=== PATIENT | male | born 1995 | race Caucasian/White ===

== ENCOUNTER 2017-05-12 20:05 | Inpatient (IN) | payer OTHER ==
--- NOTE | 2017-05-12 21:15 | ED ---
General Adult HPI - General Chief complaint: Skin/Abscess/Foreign Body Stated complaint: Abscess Time Seen by Provider: 05/12/17 21:02 Source: patient, RN notes reviewed Mode of arrival: ambulatory Limitations: no limitations - History of Present Illness Initial comments: 21-year-old male with history of IV drug use presents for evaluation of left wrist pain and swelling. Patient noted approximately to 3 days ago that he was developing some erythema and warmth over the left wrist. This progressed into a nodular mass. He does admit to injecting IV drugs in this area. Denies any concern for foreign body. Patient has been taking Bactrim for the past 2 days and his symptoms have worsened. Denies fever. Denies any other complaints. - Related Data Home Medications Medication Instructions Recorded Confirmed No Known Home Medications [No 05/12/17 05/12/17 Known Home Medications] Allergies Allergy/AdvReac Type Severity Reaction Status Date / Time No Known Allergies Allergy Verified 05/12/17 21:01 Review of Systems ROS Statement: Those systems with pertinent positive or pertinent negative responses have been documented in the HPI. ROS Other: All systems not noted in ROS Statement are negative. Past Medical History Past Medical History: No Reported History History of Any Multi-Drug Resistant Organisms: None Reported Past Surgical History: No Surgical Hx Reported Past Psychological History: No Psychological Hx Reported Smoking Status: Current every day smoker Past Alcohol Use History: None Reported Past Drug Use History: None Reported General Exam Limitations: no limitations General appearance: alert, in no apparent distress Head exam: Present: atraumatic, normocephalic Eye exam: Present: normal appearance, PERRL ENT exam: Present: normal exam Neck exam: Present: normal inspection. Absent: tenderness Respiratory exam: Present: normal lung sounds bilaterally. Absent: respiratory distress Cardiovascular Exam: Present: regular rate, normal rhythm GI/Abdominal exam: Present: soft. Absent: distended, tenderness Extremities exam: Present: other (Left wrist: There is 3 cm round fluctuant mass with surrounding induration and erythema on the ulnar side of the dorsal wrist, cellulitis progressing from the midforearm to the MCP joint. Soft tissue swelling throughout, decreased range of motion at the wrist.) Course Vital Signs 05/12/17 05/12/17 20:41 22:16 Temperature 98.3 F 98.8 F Pulse Rate 74 74 Respiratory 18 18 Rate Blood Pressure 128/60 161/88 O2 Sat by Pulse 100 100 Oximetry Procedures - Incision & Drainage Consent Obtained: verbal consent Time Out Performed?: Yes Site: hand I&D Cleaning Method: Betadine Sterile Field Used?: Yes Scalpel Used: #11 I&D Drainage Obtained: Pus, Blood Packing: Iodoform Culture Obtained?: Yes Complications: pain Patient Tolerated Procedure: well Medical Decision Making - Medical Decision Making 21-year-old male presenting with left wrist abscess and cellulitis. Abscesses drained in the emergency department, approximately 20 mL of pus is obtained. Culture on drain material and blood cultures are obtained. Patient was previously on Bactrim. Laboratory studies reveal elevated white blood cell count and elevated CRP. There is extensive cellulitis of the dorsal surface of the hand and distal forearm. Patient will be admitted for IV antibiotics, failed outpatient antibiotic treatment. I have a low suspicion for involvement of the wrist. This appears to be superficial to the wrist. If symptoms do not improve after drainage and IV antibiotics, hand surgery consultation may be required. X-ray obtained, shows no gas formation or bony abnormality. Left wrist abscess and cellulitis, failed outpatient treatment - Lab Data Result diagrams: 05/12/17 22:15 05/12/17 22:15 Lab Results 05/12/17 05/12/17 Range/Units 22:15 22:15 WBC 12.9 H (3.8-10.6) k/uL RBC 4.40 (4.30-5.90) m/uL Hgb 12.7 L (13.0-17.5) gm/dL Hct 38.1 L (39.0-53.0) % MCV 86.7 (80.0-100.0) fL MCH 28.9 (25.0-35.0) pg MCHC 33.3 (31.0-37.0) g/dL RDW 13.4 (11.5-15.5) % Plt Count 311 (150-450) k/uL Neutrophils % 70 % Lymphocytes % 20 % Monocytes % 5 % Eosinophils % 4 % Basophils % 0 % Neutrophils # 9.0 H (1.3-7.7) k/uL Lymphocytes # 2.6 (1.0-4.8) k/uL Monocytes # 0.6 (0-1.0) k/uL Eosinophils # 0.5 (0-0.7) k/uL Basophils # 0.1 (0-0.2) k/uL Sodium 140 (137-145) mmol/L Potassium 4.8 (3.5-5.1) mmol/L Chloride 108 H (98-107) mmol/L Carbon Dioxide 24 (22-30) mmol/L Anion Gap 8 mmol/L BUN 14 (9-20) mg/dL Creatinine 1.20 (0.66-1.25) mg/dL Est GFR (MDRD) Af Amer >60 (>60 ml/min/1.73 sqM) Est GFR (MDRD) Non-Af >60 (>60 ml/min/1.73 sqM) Glucose 95 (74-99) mg/dL Calcium 9.4 (8.4-10.2) mg/dL Total Bilirubin 0.5 (0.2-1.3) mg/dL AST 25 (17-59) U/L ALT 24 (21-72) U/L Alkaline Phosphatase 70 (38-126) U/L C-Reactive Protein 37.2 H (<10.0) mg/L Total Protein 7.5 (6.3-8.2) g/dL Albumin 4.1 (3.5-5.0) g/dL Disposition Clinical Impression: Cellulitis of wrist, Abscess Disposition: ADMITTED IP TO THIS [facility] Condition: Stable Referrals: Nonstaff,Physician [Primary Care Provider] - 1-2 days Decision to Admit Reason: Admit from EC Decision Date: 05/12/17 Decision Time: 23:01
[2017-05-12] MEDS ORDERED: KETOROLAC 30 MG/ML 1 ML VIAL IVP STA (21:25)
--- NOTE | 2017-05-12 22:08 | XR ---
EXAMINATION TYPE: XR wrist complete LT DATE OF EXAM: 05/12/2017 COMPARISON: NONE HISTORY: Pain, abscess TECHNIQUE: 3 views left wrist supplemented with a navicular view FINDINGS: There is very prominent soft tissue swelling over the dorsum of the wrist and hand which ca n be related to the patient's reported abscess. The osseous structures appear intact. No cortical ero sions are identified. IMPRESSION: 1. No acute osseous abnormality. 2. Prominent soft tissue swelling dorsum of the hand and wrist can be related to the patient's report ed abscess.
[2017-05-12 22:26] LABS: Basophils # (A) 0.1 k/uL (0-0.2); Basophils % (A) 0 %; CH 28.9; CHCM 33.5; Eosinophils # (A) 0.5 k/uL (0-0.7); Eosinophils % (A) 4 %; HCT 38.1 % (39.0-53.0); HDW 2.54; HGB 12.7 gm/dL (13.0-17.5); Luc % (Auto) 2; Lymphocytes # (A) 2.6 k/uL (1.0-4.8); Lymphocytes % (A) 20 %; MCH 28.9 pg (25.0-35.0); MCHC 33.3 g/dL (31.0-37.0); MCV 86.7 fL (80.0-100.0); Mean Platelet Volume 6.5; Monocytes # (A) 0.6 k/uL (0-1.0); Monocytes % (A) 5 %; Neutrophils % (A) 70 %; RDW 13.4 % (11.5-15.5); WBC 12.9 k/uL (3.8-10.6); WBC (Perox) 13.09
[2017-05-12 22:43] LABS: Anion Gap 8 mmol/L; C Reactive Protein 37.2 mg/L (<10.0); Calcium 9.4 mg/dL (8.4-10.2); Carbon Dioxide 24 mmol/L (22-30); Chloride 108 mmol/L (98-107); Glucose 95 mg/dL (74-99); Non-African American GFR(MDRD) >60 (>60 ml/min/1.73 sqM); Sodium 140 mmol/L (137-145); Total Bilirubin 0.5 mg/dL (0.2-1.3)
[2017-05-12 22:44] LABS: Blood Urea Nitrogen 14 mg/dL (9-20); Potassium 4.8 mmol/L (3.5-5.1); Total Protein 7.5 g/dL (6.3-8.2)
[2017-05-12 22:45] LABS: ALT 24 U/L (21-72); AST 25 U/L (17-59); Alkaline Phosphatase 70 U/L (38-126)
[2017-05-12] MEDS ORDERED: cefTRIAXone IN SWFI 1,000 MG/10 ML SYRINGE IVP STA (22:58)
[2017-05-12] MEDS ORDERED: VANCOMYCIN IV PER PHARMACY 1 EACH MISC MISCELLANE PRN (22:58)
[2017-05-12] MEDS ORDERED: cefTRIAXone IN SWFI 1,000 MG/10 ML SYRINGE IVP SCH (23:00)
[2017-05-12] MEDS ORDERED: NALOXONE 0.4 MG/ML 1 ML VIAL IV PRN (23:01)
[2017-05-12] MEDS ORDERED: ONDANSETRON 4 MG/2 ML VIAL IVP PRN (23:01)
[2017-05-12] MEDS: SODIUM CHLORIDE 0.9% 1,000 ML IV SCH (23:58)
[2017-05-12] MEDS: NICOTINE 14MG/24HR PATCH TRANSDERM SCH (23:58)
[2017-05-13] MEDS: VANCOMYCIN 1,500 MG in SODIUM CHLORIDE 0.9% 250 ML IVPB SCH ×3 (00:05→19:54)
[2017-05-13 00:30] VITALS: BMI 25.1
[2017-05-13] MEDS: ACETAMINOPHEN TAB 325 MG TAB PO PRN ×2 (00:38→17:50)
[2017-05-13] MEDS: KETOROLAC 30 MG/ML 1 ML VIAL IVP PRN ×3 (04:47→19:47)
[2017-05-13 06:56] LABS: Basophils # (A) 0.1 k/uL (0-0.2); Basophils % (A) 1 %; CH 28.5; CHCM 32.4; Eosinophils # (A) 0.5 k/uL (0-0.7); Eosinophils % (A) 4 %; HCT 38.8 % (39.0-53.0); HDW 2.37; HGB 12.4 gm/dL (13.0-17.5); Luc # (Auto) 0.16; Luc % (Auto) 2; Lymphocytes # (A) 2.1 k/uL (1.0-4.8); Lymphocytes % (A) 20 %; MCH 28.4 pg (25.0-35.0); MCHC 32.1 g/dL (31.0-37.0); MCV 88.5 fL (80.0-100.0); Mean Platelet Volume 7.3; Monocytes # (A) 0.8 k/uL (0-1.0); Monocytes % (A) 7 %; Neutrophils # (A) 6.9 k/uL (1.3-7.7); Neutrophils % (A) 66 %; RBC 4.38 m/uL (4.30-5.90); RDW 14.6 % (11.5-15.5); WBC 10.3 k/uL (3.8-10.6); WBC (Perox) 10.51
[2017-05-13 07:07] LABS: ALT 24 U/L (21-72); AST 15 U/L (17-59); Alkaline Phosphatase 62 U/L (38-126); Anion Gap 6 mmol/L; Blood Urea Nitrogen 11 mg/dL (9-20); Calcium 9.1 mg/dL (8.4-10.2); Carbon Dioxide 25 mmol/L (22-30); Chloride 110 mmol/L (98-107); Glucose 83 mg/dL (74-99); Non-African American GFR(MDRD) >60 (>60 ml/min/1.73 sqM); Potassium 4.5 mmol/L (3.5-5.1); Sodium 141 mmol/L (137-145); Total Bilirubin 0.3 mg/dL (0.2-1.3); Total Protein 6.4 g/dL (6.3-8.2)
[2017-05-13] MEDS: NICOTINE 14MG/24HR PATCH TRANSDERM SCH (08:31)
[2017-05-13] MEDS ORDERED: LORazepam 0.5 MG TAB PO PRN (14:04)
--- NOTE | 2017-05-13 15:28 | HP ---
HISTORY AND PHYSICAL DATE OF SERVICE: 05/13/2017 CHIEF COMPLAINTS: Pain and swelling of the left wrist area. HISTORY OF PRESENT ILLNESS: This 21-year-old gentleman with a past history of IV drug abuse, history of asthma, being followed by primary physician from elsewhere, he is a resident of [facility] at this time. The patient has got a history IV drug abuse as mentioned earlier. The patient is complaining of pain and swelling of the left wrist and the patient came to the ER. The patient had incision and drainage and admitted to the hospital for further evaluation and treatment. The patient has been taking Bactrim for 2 days with failure of outpatient treatment. There is no history of fever, rigors or chills. No history of headache, loss of consciousness or seizures. PAST MEDICAL: Asthma, history of IV drug abuse. MEDICATIONS: Prior to admission include none. ALLERGIES: None. FAMILY HISTORY: History of cancer in the family. SOCIAL HISTORY: History of smoking. History of IV heroin abuse. The patient works in construction. REVIEW OF SYSTEMS: ENT: No diminished vision. No diminished hearing. CARDIOVASCULAR: No angina or palpitations. Respiration no cough or hemoptysis. GI no nausea. no dysuria. Nervous System: No numbness or weakness. ALLERGY/IMMUNOLOGY: No asthma or hayfever. Musculoskeletal: As mentioned earlier. Hematology: No history of anemia. Endocrine: No history of diabetes or hypothyroidism. CONSTITUTIONAL: As mentioned earlier. Dermatology: Negative. Rheumatology: Negative. Psychiatric: As mentioned earlier. PHYSICAL EXAM: Patient is alert, oriented times three. Pulse is 66, blood pressure 93/49, respiration 15, temperature 98.8, pulse ox 97% on room air. HEENT is conjunctivae normal. Neck no jugular venous distention. Cardiovascular: S1, S2 muffled. RESPIRATORY: Breath sounds diminished in the bases. No rhonchi and no crackles. ABDOMEN: Soft, nontender. No mass palpable. Legs no edema. No swelling. Central nervous system: No focal deficits. Examination of the left wrist significant swelling and abscess and status post incision, drainage. Nervous system: No focal deficits. LABS: WBC 7.2, hemoglobin 12.4. ASSESSMENT: 1. Left wrist possibly abscess cellulitis status post incision, drainage. 2. History IV drug abuse. 3. Increased WBC. 4. Anemia. 5. History of asthma. RECOMMENDATIONS AND DISCUSSION: In this 21-year-old gentleman who presented with multiple complex medical issues, we will monitor the patient closely. Continue the current management and continue symptomatic treatment. Obtain cultures. The patient is on Rocephin and vancomycin. Also recommend infectious disease and orthopedic evaluation. Guarded prognosis because of multiple complex medical issues. Further recommendations to follow. Continue the rest of medications. We will initiate the Toradol for pain control at this time. Once again, the prognosis guarded. MMODL / IJN: [id number] /
[2017-05-13] MEDS ORDERED: TEMAZEPAM 15 MG CAP PO PRN (21:00)
--- NOTE | 2017-05-13 22:36 | CONS ---
CONSULTATION DATE OF SERVICE: 05/13/2017. REASON FOR CONSULTATION: Left wrist abscess and cellulitis. HISTORY OF PRESENT ILLNESS: The patient is a 21 male with no significant past medical history and did have history of IV drug use, presenting to the ER with chief complaints of left wrist pain and swelling that has been going on for about 3 days. The patient developed a small area of burn that has gradually increased in size, becoming more painful. Pain is almost throbbing 7 to 8 out of 10 and no radiation. The patient did admit to the ER physician about injecting that area. However, he denied the same to me. The patient subsequently has been evaluated by the ER physician where the patient did have I and D of this area. The patient did have x-rays of the left wrist which did not show any bony abnormality. The patient has been started on Rocephin and vancomycin and has been admitted hospital. ID was consulted for further recommendation regarding antibiotic therapy. REVIEW OF SYSTEMS: Constitutional positive for weakness but no high-grade fever. Eyes no complaint. ENT no complaint. Respiratory no complaint. Cardiovascular no complaint. Genitourinary no complaint. Gastrointestinal: No complaint. Musculoskeletal as per HPI. Integumentary as per HPI. PSYCHOLOGICAL: No complaint. Endocrine no complaint. Neurologic no complaint. PAST MEDICAL HISTORY: Positive for asthma. PAST SURGICAL HISTORY: No major surgery. SOCIAL HISTORY: Did admit to smoking and IV drug use. FAMILY HISTORY: No pertinent findings noticed. ALLERGIES: No known drug allergies. MEDICATIONS WERE: The patient is currently on Zofran, Restoril vancomycin, pharmacy to dose, nicotine patch, Ativan, Toradol. Rocephin, Tylenol. EXAMINATION: Blood pressure is 93/49 with a pulse of 66, temperature 98.8. He is 97% on room air. General description is a middle-aged male lying in bed in no distress with no tachypnea or accessory muscle of respiration use. HEENT: Shows pallor no scleral icterus. Oral mucosa is dry. Neck trachea central. No thyromegaly. Lungs unlabored breathing. Clear to auscultation anteriorly. Heart S1, S2. Regular rate and rhythm. ABDOMEN: Soft no tenderness. No guarding and no rigidity. Extremities: Examination of the left wrist area slightly swelling with redness with wound is packed. No significant drainage. Neurological patient is awake, alert, oriented times three. Mood and affect normal. LABS: Hemoglobin is 12.8 with white count 10.3, BUN of 11, creatinine 0.80. White count has been normal. Liver enzymes are normal. Electrolytes have been normal. He did have a wound culture which is currently pending. Blood culture obtained currently pending. DIAGNOSTIC IMPRESSION AND PLAN: Patient with left wrist abscess from injection drug use, status post I and D in the ER. The likely organism to cover will be the Gram-positive bacilli for however gram- negative such as Pseudomonas not entirely excluded. PLAN: 1. We will keep the patient on vancomycin pharmacy to dose target of 15 however, switch the Rocephin to Fortaz to cover for Pseudomonas. 2. Iodoform packing of the wound. 3. Depending upon the clinical response as well as cultures, will further adjust medication if needed. Thank you for this consultation. Will follow this patient with you. HELEN / CIPRIANON: [id number] / MTDD
[2017-05-14] MEDS: SODIUM CHLORIDE 0.9% 1,000 ML IV SCH (01:40)
[2017-05-14] MEDS: KETOROLAC 30 MG/ML 1 ML VIAL IVP PRN ×3 (05:14→18:40)
[2017-05-14] MEDS: VANCOMYCIN 1,500 MG in SODIUM CHLORIDE 0.9% 250 ML IVPB SCH ×2 (05:36→13:16)
[2017-05-14 07:04] VITALS: RESP 16
[2017-05-14] MEDS: NICOTINE 14MG/24HR PATCH TRANSDERM SCH (08:36)
--- NOTE | 2017-05-14 09:28 | P.CNOR ---
History of Present Illness - HPI Consult date: 05/14/17 Consult reason: other (left wrist infection) History of present illness: Patient is a 21-year-old male seen at bedside this morning in consultation for left wrist infection. He is known to have a history of IV drug use. He presented yesterday, 05/13/17 for evaluation of left wrist pain and swelling. Patient noted approximately 4 days ago that he was developing redness, swelling and warmth over the left wrist. This progressed into a nodular mass. He does admit to injecting IV drugs in this area. Denies any concern for foreign body. Patient had been taking Bactrim prior to admission. Infectious disease has been consulted and he has been on IV antibiotics. The wound was I and D'd in the ED then iodoform gauze was packed. He feels is wristhas some improvement today. He denies numbness, tingling or any new complaints. He also denies fevers , chills, nausea or other. Review of Systems All systems: negative Constitutional: Denies chills, Denies fever Eyes: denies blurred vision, denies pain Ears, nose, mouth and throat: Denies headache, Denies sore throat Cardiovascular: Denies chest pain, Denies shortness of breath Respiratory: Denies cough Gastrointestinal: Denies abdominal pain, Denies diarrhea, Denies nausea, Denies vomiting Musculoskeletal: Denies myalgias Integumentary: Denies pruritus, Denies rash Neurological: Denies numbness, Denies weakness Psychiatric: Denies anxiety, Denies depression Endocrine: Denies fatigue, Denies weight change Past Medical History Past Medical History: Asthma History of Any Multi-Drug Resistant Organisms: None Reported Past Surgical History: No Surgical Hx Reported Past Anesthesia/Blood Transfusion Reactions: No Reported Reaction Past Psychological History: No Psychological Hx Reported Smoking Status: Current every day smoker Past Alcohol Use History: None Reported Past Drug Use History: None Reported - Past Family History Mother Family Medical History: Cancer Additional Family Medical History / Comment(s): patient states heart problems on mothers side not sure what kind of heart problems. Father Family Medical History: No Reported History Medications and Allergies Home Medications Medication Instructions Recorded Confirmed Type No Known Home Medications [No 05/12/17 05/12/17 History Known Home Medications] Allergies Allergy/AdvReac Type Severity Reaction Status Date / Time No Known Allergies Allergy Verified 05/12/17 21:01 Physical Examination Inspection of the left wrist shows mild to moderate edema to the dorsum with mild erythema. There is no progressing erythema. Iodoform gauze is removed from a small wound at the dorsum of the wrist.. There is minimal to no bleeding and minimal to no drainage. No purulent drainage he was able to be expressed. Range of motion of the wrist is painless with extension and flexion. Sensation to light touch is intact throughout the left upper extremity and hand. Motor is intact from left upper extremity. 2+ radial pulses present. Less than 2 second cap refill is present distally. Results - Labs Labs: Microbiology - Last 24 Hours (Table) 05/12/17 21:30 Gram Stain - Preliminary Wrist - Left Wound Culture - Preliminary 05/12/17 22:15 Blood Culture - Preliminary Blood No Growth after 24 hours H & H 05/12/17 05/13/17 Range/Units 22:15 06:36 Hgb 12.7 L 12.4 L (13.0-17.5) gm/dL Hct 38.1 L 38.8 L (39.0-53.0) % Result Diagrams: 05/13/17 06:36 05/13/17 06:36 - Diagnostic results Wrist/Hand x-ray: report reviewed, image reviewed Assessment and Plan (1) Cellulitis of wrist Narrative/Plan: Currently, he does not appear to need surgical intervention. We will continue to monitor and advise continued wound care along with IV antibiotic coverage per infectious disease. Will recheck again in the morning and make further recommendations as appropriate. Thank you Current Visit: Yes Status: Acute Priority: Medium Code(s): L03.119 - CELLULITIS OF UNSPECIFIED PART OF LIMB SNOMED Code(s): 79643761 Time with Patient: Less than 30
--- NOTE | 2017-05-14 14:35 | PN ---
PROGRESS NOTE DATE OF SERVICE: 05/14/2017 REASON FOR FOLLOWUP: Left breast abscess and cellulitis. INTERVAL HISTORY: The patient is afebrile. He is breathing comfortably. Denies any chest pain or shortness of breath. No abdominal pain. Pain to the left breast is currently controlled. PHYSICAL EXAMINATION: Blood pressure 108/56 with a pulse of 68, temperature 97.6. He is 98% on room air. General description is a middle-aged male lying in bed in no distress. RESPIRATORY SYSTEM: Unlabored breathing, clear to auscultation anteriorly. HEART: S1, S2. Regular rate and rhythm. ABDOMEN: Soft, no tenderness. Left breast is currently dressed up, no obvious drainage on the dressing. LABS: Hemoglobin 12.4, white count 10.3 with a BUN of 11, creatinine 0.80. DIAGNOSTIC IMPRESSION AND PLAN: Patient with left breast abscess, more likely due to IV drug use, status post drainage of this abscess. Waiting for the culture to finalize. Keep the patient on Vanco and Fortaz. Continue with supportive care. MMODL / IJN: [id number] /
--- NOTE | 2017-05-14 17:26 | P.PN ---
Subjective Patient was admitted with left wrist cellulitis, patient was started on antibiotics vancomycin and Ceptaz impatiens wound cultures are positive both for gram-negative bacilli and gram-positive cocci awaiting finalization of the wound cultures patient will be continued on present antibiotics. We'll also obtain hepatitis panel his last hepatitis panel that was done was about 5 months ago which was negative. Patient does have history of IV drug use. Constitutional: Denied any fatigue denied any fever. Cardio vascular: denied any chest pain, palpitations Gastrointestinal denied any nausea vomiting Pulmonary: Denied any shortness of breath cough Neurologic denied any new focal deficits Objective - Vital Signs Vital signs: Vital Signs Temp 97.8 F 05/14/17 15:00 Pulse 60 05/14/17 15:00 Resp 16 05/14/17 15:00 BP 109/61 05/14/17 15:00 Pulse Ox 99 05/14/17 15:00 Intake & Output 05/13/17 05/14/17 05/14/17 18:59 06:59 18:59 Intake Total 880 1700 237 Balance 880 1700 237 Intake: Intake, IV Titration 160 700 Amount Sodium Chloride 0.9% 1, 160 100 000 ml @ 20 mls/hr IV . Q24H NARESH Rx#:[id number] Vancomycin 1,500 mg In 500 Sodium Chloride 0.9% 250 ml @ 125 mls/hr IVPB Q8H NARESH Rx#:[id number] cefTAZidime 2 gm In 100 Sodium Chloride 0.9% 100 ml @ 100 mls/hr IVPB Q12HR NARESH Rx#:[id number] Oral 720 1000 237 Other: Voiding Method Toilet Toilet Toilet # Voids 2 2 1 - Exam PHYSICAL EXAMINATION: GENERAL: The patient is alert and oriented x3, not in any acute distress. Well developed, well nourished. HEENT: Pupils are round and equally reacting to light. EOMI. No scleral icterus. No conjunctival pallor. Normocephalic, atraumatic. No pharyngeal erythema. No thyromegaly. CARDIOVASCULAR: S1 and S2 present. No murmurs, rubs, or gallops. PULMONARY: Chest is clear to auscultation, no wheezing or crackles. ABDOMEN: Soft, nontender, nondistended, normoactive bowel sounds. No palpable organomegaly. MUSCULOSKELETAL: No joint swelling or deformity. EXTREMITIES: Patient does have left hand swelling, as per the patient patient's redness and swelling significantly improved patient does have a nidus of infection that can be appreciated on the left hand NEUROLOGICAL: Gross neurological examination did not reveal any focal deficits. SKIN: No rashes. - Labs CBC & Chem 7: 05/13/17 06:36 05/13/17 06:36 Labs: Microbiology - Last 24 Hours (Table) 05/12/17 21:30 Gram Stain - Preliminary Wrist - Left Wound Culture - Preliminary 05/12/17 22:15 Blood Culture - Preliminary Blood No Growth after 24 hours Assessment and Plan Plan: #1 left wrist for lightest possibly day of abscess #2 history of IV drug use will obtain hepatitis panel #3 history of asthma not in acute exacerbation Continue with IV antibiotics follow-up on wound cultures.
[2017-05-14] MEDS ORDERED: VANCOMYCIN TROUGH DUE 1 EACH MISC MISCELLANE ONE (20:00)
[2017-05-15] MEDS ORDERED: TEMAZEPAM 15 MG CAP ONE (00:10)
[2017-05-15] MEDS ORDERED: KETOROLAC 30 MG/ML 1 ML VIAL ONE (00:10)
[2017-05-15] MEDS: VANCOMYCIN 1,500 MG in SODIUM CHLORIDE 0.9% 250 ML IVPB SCH ×2 (03:46→05:04)
[2017-05-15] MEDS: SODIUM CHLORIDE 0.9% 1,000 ML IV SCH (03:47)
[2017-05-15] MEDS: KETOROLAC 30 MG/ML 1 ML VIAL IVP PRN ×2 (05:04→11:32)
[2017-05-15 06:52] LABS: Anion Gap 9 mmol/L; Blood Urea Nitrogen 11 mg/dL (9-20); Carbon Dioxide 23 mmol/L (22-30); Chloride 108 mmol/L (98-107); Glucose 89 mg/dL (74-99); Non-African American GFR(MDRD) >60 (>60 ml/min/1.73 sqM); Potassium 4.3 mmol/L (3.5-5.1); Sodium 140 mmol/L (137-145)
--- NOTE | 2017-05-15 08:51 | P.PN ---
Subjective Progress Note Date: 05/15/17 Principal diagnosis: Left wrist infection Patient is 21-year-old male seen at bedside this morning. We are following him for his left wrist infection. He has also been seen by infectious disease. His wound has been packed with iodoform gauze. Microbiology is shown gram- positive cocci and rods. He feels his wrist pain and symptoms are nearly completely resolved in comparison to when he first was admitted. He denies fevers or chills. He also does denies numbness or tingling or other complaints. Objective - Vital Signs Vital signs: Vital Signs Temp 98.1 F 05/15/17 00:48 Pulse 68 05/15/17 00:48 Resp 16 05/15/17 00:48 BP 111/65 05/15/17 00:48 Pulse Ox 93 L 05/15/17 00:48 Intake & Output 05/14/17 05/15/17 05/15/17 18:59 06:59 18:59 Intake Total 417 1140 Balance 417 1140 Intake: Intake, IV Titration 640 Amount Sodium Chloride 0.9% 1, 40 000 ml @ 20 mls/hr IV . Q24H NARESH Rx#:[id number] Vancomycin 1,500 mg In 500 Sodium Chloride 0.9% 250 ml @ 125 mls/hr IVPB Q8H NARESH Rx#:[id number] cefTAZidime 2 gm In 100 Sodium Chloride 0.9% 100 ml @ 100 mls/hr IVPB Q12HR NARESH Rx#:[id number] Oral 417 500 Other: Voiding Method Toilet Toilet # Voids 1 2 - Exam Inspection of the left wrist shows nearly resolved erythema at the dorsum of the wrist. There is small wound with iodoform gauze packed. There is evidence of mild bleeding but no purulent drainage. There is minimal to no edema throughout the wrist and hand. Neurovascular status is fully intact with motor and sensation throughout the extra upper extremity. 2+ radial pulse and less than 2 second cap refill is present. - Constitutional General appearance: Present: no acute distress - Psychiatric Psychiatric: Present: A&O x's 3, appropriate affect, intact judgment & insight - Labs CBC & Chem 7: 05/13/17 06:36 05/15/17 06:11 Labs: Abnormal Lab Results - Last 24 Hours (Table) 05/14/17 05/15/17 Range/Units 20:03 06:11 Chloride 108 H (98-107) mmol/L Hep C IgG Ab Reactive H (Non-Reactive) Microbiology - Last 24 Hours (Table) 05/12/17 22:15 Blood Culture - Preliminary Blood No Growth after 48 hours 05/12/17 21:30 Gram Stain - Preliminary Wrist - Left Wound Culture - Preliminary Assessment and Plan (1) Cellulitis of wrist Narrative/Plan: He is continuing to improve and does not appear that he needs orthopedic surgical intervention. At this point would defer to infectious disease and admitting physician as to discharge planning. We will sign off for now and we' ll be happy to revisit the patient should he worsen or desire reassessment. Thank you Current Visit: Yes Status: Acute Priority: Medium Code(s): L03.119 - CELLULITIS OF UNSPECIFIED PART OF LIMB SNOMED Code(s): 26594449 Time with Patient: Less than 30
[2017-05-15 09:03] VITALS: BP 114/66; TEMP 97.6
[2017-05-15] MEDS: NICOTINE 14MG/24HR PATCH TRANSDERM SCH (09:12)
[2017-05-15 10:30] VITALS: PULSE 63
--- NOTE | 2017-05-15 12:24 | P.DS ---
Providers Date of admission: 05/12/17 23:01 Attending physician: Volodymyr Anderson Consults: 05/13/17 10:25 Consult Physician Urgent Consulting Provider: Gina Gonzalez Consult Reason/Comments: cellulitis Do you want consulting provider notified?: Yes 05/13/17 10:27 Consult Physician Urgent Consulting Provider: Kade Nichols Consult Reason/Comments: cellulitis Do you want consulting provider notified?: Yes Primary care physician: Physician Nonstaff Hospital Course: Patient was admitted with left wrist cellulitis, patient was started on antibiotics vancomycin and caftazidime wound cultures are positive both for gram -negative bacilli and gram-positive cocci awaiting finalization of the wound cultures patient will be continued on present antibiotics. We'll also obtain hepatitis panel his last hepatitis panel that was done was about 5 months ago which was negative. Patient does have history of IV drug use. 05/15/2017 Patient is clinically doing well patient's wound cultures are showing gram- positive cocci in pairs and gram-positive bacilli which is diphtheroids. Discussed with infectious disease patient wanted to be discharged patient will be discharged on Bactrim to cover Staphylococcus patient mostly had streptococci because of which patient will be discharged on Keflex as well find it 3 times a day for 7 days and patient has positive hep C will need to be followed up with gastroneurology or infectious disease as an outpatient and patient is requesting anxiety medication patient apparently is receiving benzodiazepines for anxiety patient will be given. Before he sees his primary doctor. GENERAL: The patient is alert and oriented x3, not in any acute distress. Well developed, well nourished. HEENT: Pupils are round and equally reacting to light. EOMI. No scleral icterus. No conjunctival pallor. Normocephalic, atraumatic. No pharyngeal erythema. No thyromegaly. CARDIOVASCULAR: S1 and S2 present. No murmurs, rubs, or gallops. PULMONARY: Chest is clear to auscultation, no wheezing or crackles. ABDOMEN: Soft, nontender, nondistended, normoactive bowel sounds. No palpable organomegaly. MUSCULOSKELETAL: No joint swelling or deformity. EXTREMITIES: Patient does have left hand swelling, as per the patient patient's redness and swelling significantly improved patient does have a nidus of infection that can be appreciated on the left hand NEUROLOGICAL: Gross neurological examination did not reveal any focal deficits. SKIN: No rashes. Assessment and Plan Plan: #1 left wrist for lightest possibly day of abscess #2 history of IV drug positive hepatitis C. #3 history of asthma not in acute exacerbation #4 anxiety disorder Patient Condition at Discharge: Stable Plan - Discharge Summary Discharge Rx Participant: No New Discharge Prescriptions: New ALPRAZolam [Xanax] 0.25 mg PO BID PRN #15 tab PRN Reason: Anxiety Cephalexin [Keflex] 500 mg PO Q8HR #21 cap Sulfamethox-Tmp 800-160Mg [Bactrim DS 800-160 mg] 1 tab PO Q12HR #14 tab traMADol HCL [Ultram] 50 mg PO Q4HR PRN #30 tab PRN Reason: Pain Discharge Medication List ALPRAZolam [Xanax] 0.25 mg PO BID PRN #15 tab 05/15/17 [Rx] Cephalexin [Keflex] 500 mg PO Q8HR #21 cap 05/15/17 [Rx] Sulfamethox-Tmp 800-160Mg [Bactrim DS 800-160 mg] 1 tab PO Q12HR #14 tab [Rx] traMADol HCL [Ultram] 50 mg PO Q4HR PRN #30 tab 05/15/17 [Rx] Follow up Appointment(s)/Referral(s): Nonstaff,Physician [Primary Care Provider] - 3 Days Gina Gonzalez MD [STAFF PHYSICIAN] - 1 Week Eugene Alvarado MD [STAFF PHYSICIAN] - 1 Week Discharge Disposition: HOME SELF-CARE
--- NOTE | 2017-05-15 14:54 | PN ---
PROGRESS NOTE DATE OF SERVICE: 05/15/2017 REASON FOR FOLLOWUP: Left wrist abscess and cellulitis. INTERVAL HISTORY: The patient is afebrile. He is breathing comfortably. Pain to the left wrist area is currently improved. Denies any chest pain, shortness of breath or cough. No abdominal pain or diarrhea. Is insisting on going home. PHYSICAL EXAMINATION: Blood pressure 114/66 with a pulse of 53, temperature 97.6. He is 100% on room air. General description is a middle-aged male, lying in bed in no distress. RESPIRATORY SYSTEM: Unlabored breathing, clear to auscultation anteriorly. HEART: S1, S2. Regular rate and rhythm: Left wrist area swelling, redness improved no drainage was noticed. LABS: BUN of 11, creatinine 0.80. Wound culture currently pending. DIAGNOSTIC IMPRESSION AND PLAN: 1. Patient with left wrist abscess and cellulitis. Wound culture showing gram- positive cocci in pairs. Patient has been waiting in a hospital for the culture to finalize, so he is insisting on going home. May be given oral Keflex and Bactrim with close outpatient followup with Iodoform packing of the wound. 2. Patient with hepatitis C antibody positive. Patient will have workup in an outpatient setting to determine the genotype and the best available therapy for him. The patient is to stop using IV drugs before being considered for therapy. MMODL / IJN: [id number] /
== END 2017-05-15 15:03 | disposition home or self-care (01) | DRG 603 ==
LOC: EC 20:05 → 3SUR 23:01
PROVIDERS: ADMIT Hospitalist; ATTEND Hospitalist
PROC: 0X9H3ZZ Drainage of Left Wrist Region, Percutaneous Approach (ICD-10-PCS; principal; 2017-05-12)
DX: L02.414 Cutaneous abscess of left upper limb (principal); B95.5 Unspecified streptococcus as the cause of diseases classified elsewhere; L03.114 Cellulitis of left upper limb; B19.20 Unspecified viral hepatitis C without hepatic coma; D64.9 Anemia, unspecified; F17.200 Nicotine dependence, unspecified, uncomplicated; F19.90 Other psychoactive substance use, unspecified, uncomplicated; F41.9 Anxiety disorder, unspecified; J45.909 Unspecified asthma, uncomplicated; D72.829 Elevated white blood cell count, unspecified
CPT/HCPCS: 10060; 36415; 80048; 80053; 80074; 80202; 85025; 86140; 87040; 87070; 87205; 96374; 96375; 99284